=== PATIENT | male | born 1955 | race Caucasian/White ===

== ENCOUNTER 2020-02-01 17:35 | Emergency (ER) | payer BC ==
--- NOTE | 2020-02-01 18:38 | EDM.PDOC ---
ED HPI GENERAL MEDICAL PROBLEM - General Chief Complaint: General Stated Complaint: Rash, joint pain Time Seen by Provider: 02/01/20 18:30 Source of Information: Reports: Patient History Limitations: Reports: No Limitations - History of Present Illness INITIAL COMMENTS - FREE TEXT/NARRATIVE: Patient is a 64-year-old male who presents to the ER with complaints of a generalized body rash, pruritus, and joint pain to his upper extremities. Patient developed the rash on Thursday after approximately 8 to 9 days of amoxicillin treatment for a dental infection. He saw his primary care provider , Dr. Enriquez, in the clinic on that day. He was initially started on a Medrol dose pack, however had little improvement. Yesterday morning he called Dr. Enriquez and he changed him to prednisone 20 mg daily. He took 1 dose of prednisone yesterday morning and 1 dose this morning. Patient states that the rash does not seem to have improve and that last night he developed aching in that his joints of his wrists, elbows, and right shoulder. He denies any difficulty breathing. He states he did take Benadryl around 4:00 this morning did not notice any difference in the rash. He has not been taking an H2 mello. He complains of difficulty sleeping due to the pruritus. Upper Arm Pain Score (Numeric/FACES): 8 - Related Data Allergies Allergy/AdvReac Type Severity Reaction Status Date / Time amoxicillin Allergy Severe Rash Verified 02/01/20 17:55 Home Meds: Home Meds Allopurinol [Zyloprim] 100 mg PO DAILY 02/01/20 [History] Metoprolol Succinate 25 mg PO DAILY 02/01/20 [History] Rosuvastatin [Crestor] 20 mg PO DAILY 02/01/20 [History] Triamterene/Hydrochlorothiazid [Triamterene-HCTZ 37.5-25 MG] 1 cap PO DAILY [History] amLODIPine [Norvasc] 10 mg PO DAILY 02/01/20 [History] metFORMIN [Glucophage] 1,000 mg PO BIDMEALS 02/01/20 [History] predniSONE [Prednisone] 20 mg PO DAILY 02/01/20 [History] Past Medical History Cardiovascular History: Reports: High Cholesterol, Hypertension Endocrine/Metabolic History: Reports: Diabetes, Type II Social & Family History - Tobacco Use Smoking Status *Q: Never Smoker - Caffeine Use Caffeine Use: Reports: Soda - Recreational Drug Use Recreational Drug Use: No Review of Systems - Review of Systems Review Of Systems: Comprehensive ROS is negative, except as noted in HPI. ED EXAM, GENERAL - Physical Exam Exam: See Below Exam Limited By: No Limitations General Appearance: Alert, WD/WN, No Apparent Distress Throat/Mouth: Normal Inspection, Normal Lips, Normal Teeth, Normal Gums, Normal Oropharynx, Normal Voice, No Airway Compromise Head: Atraumatic, Normocephalic Neck: Normal Inspection, Supple, Non-Tender, Full Range of Motion Respiratory/Chest: No Respiratory Distress, Lungs Clear, Normal Breath Sounds, No Accessory Muscle Use, Chest Non-Tender Cardiovascular: Normal Peripheral Pulses, Regular Rate, Rhythm, No Edema, No Gallop, No JVD, No Murmur, No Rub Neurological: Alert, Oriented, CN II-XII Intact, Normal Cognition, Normal Gait, Normal Reflexes, No Motor/Sensory Deficits Psychiatric: Normal Affect, Normal Mood Skin Exam: Warm, Dry, Intact, Normal Color, Rash (Scattered hives over the abdomen, chest, back, and thighs.) Lymphatic: No Adenopathy Course - Vital Signs Last Recorded V/S: Last Vital Signs Temp 98.6 F 02/01/20 17:47 Pulse 76 02/01/20 17:47 Resp 18 02/01/20 17:47 BP 149/70 H 02/01/20 17:47 Pulse Ox 97 02/01/20 17:47 - Orders/Labs/Meds Orders: Active Orders 24 hr Category Date Time Status Peripheral IV Care [RC] . DIRECTED Care 02/01/20 18:46 Active Sodium Chloride 0.9% [Saline Flush] Med 02/01/20 18:46 Active 10 ml FLUSH ASDIRECTED PRN Peripheral IV Insertion Adult [OM.PC] Stat Oth 02/01/20 18:46 Ordered Medication Orders Sodium Chloride (Saline Flush) 10 ml FLUSH ASDIRECTED PRN PRN Reason: Keep Vein Open Last Admin: 02/01/20 19:04 Dose: 10 ml Labs: Laboratory Tests 02/01/20 02/01/20 02/01/20 Range/Units 19:00 19:00 19:00 WBC 14.56 H (4.23-9.07) K/mm3 RBC 4.98 (4.63-6.08) M/mm3 Hgb 14.4 (13.7-17.5) gm/dl Hct 42.4 (40.1-51.0) % MCV 85.1 (79.0-92.2) fl MCH 28.9 (25.7-32.2) pg MCHC 34.0 (32.2-35.5) g/dl RDW Std Deviation 45.4 H (35.1-43.9) fL Plt Count 317 (163-337) K/mm3 MPV 8.9 L (9.4-12.3) fl Neut % (Auto) 80.2 H (34.0-67.9) % Lymph % (Auto) 12.8 L (21.8-53.1) % [place] % (Auto) 6.1 (5.3-12.2) % Eos % (Auto) 0.5 L (0.8-7.0) Baso % (Auto) 0.1 (0.1-1.2) % Neut # (Auto) 11.68 H (1.78-5.38) K/mm3 Lymph # (Auto) 1.87 (1.32-3.57) K/mm3 [place] # (Auto) 0.89 H (0.30-0.82) K/mm3 Eos # (Auto) 0.07 (0.04-0.54) K/mm3 Baso # (Auto) 0.01 (0.01-0.08) K/mm3 Manual Slide Review Normal smear ESR 53 H (0-15) mm/hr Sodium 137 (136-145) mEq/L Potassium 4.0 (3.5-5.1) mEq/L Chloride 100 (98-107) mEq/L Carbon Dioxide 26 (21-32) mEq/L Anion Gap 15.0 (5-15) BUN 29 H (7-18) mg/dL Creatinine 1.4 H (0.7-1.3) mg/dL Est Cr Clr Drug Dosing 63.71 mL/min Estimated GFR (MDRD) 51 (>60) mL/min BUN/Creatinine Ratio 20.7 H (14-18) Glucose 158 H (80-115) mg/dL Calcium 9.4 (8.5-10.1) mg/dL Total Bilirubin 0.8 (0.2-1.0) mg/dL AST 25 (15-37) U/L ALT 28 (16-63) U/L Alkaline Phosphatase 85 (46-116) U/L C-Reactive Protein 11.9 H* (<1.0) mg/dL Total Protein 7.4 (6.4-8.2) g/dl Albumin 3.5 (3.4-5.0) g/dl Globulin 3.9 gm/dL Albumin/Globulin Ratio 0.9 L (1-2) Urine Color (Yellow) Urine Appearance (Clear) Urine pH (5.0-8.0) Ur Specific [place] (1.005-1.030) Urine Protein (Negative) Urine Glucose (UA) (Negative) Urine Ketones (Negative) Urine Occult Blood (Negative) Urine Nitrite (Negative) Urine Bilirubin (Negative) Urine Urobilinogen (0.2-1.0) Ur Leukocyte Esterase (Negative) Urine RBC (0-5) /hpf Urine WBC (0-5) /hpf Ur Squamous Epith Cells (0-5) /hpf Urine Bacteria (FEW) /hpf Urine Mucus (FEW) /hpf 02/01/20 Range/Units 19:47 WBC (4.23-9.07) K/mm3 RBC (4.63-6.08) M/mm3 Hgb (13.7-17.5) gm/dl Hct (40.1-51.0) % MCV (79.0-92.2) fl MCH (25.7-32.2) pg MCHC (32.2-35.5) g/dl RDW Std Deviation (35.1-43.9) fL Plt Count (163-337) K/mm3 MPV (9.4-12.3) fl Neut % (Auto) (34.0-67.9) % Lymph % (Auto) (21.8-53.1) % [place] % (Auto) (5.3-12.2) % Eos % (Auto) (0.8-7.0) Baso % (Auto) (0.1-1.2) % Neut # (Auto) (1.78-5.38) K/mm3 Lymph # (Auto) (1.32-3.57) K/mm3 [place] # (Auto) (0.30-0.82) K/mm3 Eos # (Auto) (0.04-0.54) K/mm3 Baso # (Auto) (0.01-0.08) K/mm3 Manual Slide Review ESR (0-15) mm/hr Sodium (136-145) mEq/L Potassium (3.5-5.1) mEq/L Chloride (98-107) mEq/L Carbon Dioxide (21-32) mEq/L Anion Gap (5-15) BUN (7-18) mg/dL Creatinine (0.7-1.3) mg/dL Est Cr Clr Drug Dosing mL/min Estimated GFR (MDRD) (>60) mL/min BUN/Creatinine Ratio (14-18) Glucose (80-115) mg/dL Calcium (8.5-10.1) mg/dL Total Bilirubin (0.2-1.0) mg/dL AST (15-37) U/L ALT (16-63) U/L Alkaline Phosphatase (46-116) U/L C-Reactive Protein (<1.0) mg/dL Total Protein (6.4-8.2) g/dl Albumin (3.4-5.0) g/dl Globulin gm/dL Albumin/Globulin Ratio (1-2) Urine Color Yellow (Yellow) Urine Appearance Clear (Clear) Urine pH 6.0 (5.0-8.0) Ur Specific [place] 1.025 (1.005-1.030) Urine Protein 1+ H (Negative) Urine Glucose (UA) Negative (Negative) Urine Ketones Negative (Negative) Urine Occult Blood Negative (Negative) Urine Nitrite Negative (Negative) Urine Bilirubin Negative (Negative) Urine Urobilinogen 0.2 (0.2-1.0) Ur Leukocyte Esterase Negative (Negative) Urine RBC 0-5 (0-5) /hpf Urine WBC 0-5 (0-5) /hpf Ur Squamous Epith Cells 0-5 (0-5) /hpf Urine Bacteria Few (FEW) /hpf Urine Mucus Few (FEW) /hpf Meds: Medications Generic Name Dose Route Start Last Admin Trade Name Freq PRN Reason Stop Dose Admin Sodium Chloride 10 ml 02/01/20 18:46 02/01/20 19:04 Saline Flush FLUSH 10 ml ASDIRECTED PRN Administration Keep Vein Open Discontinued Medications Generic Name Dose Route Start Last Admin Trade Name Freq PRN Reason Stop Dose Admin Diphenhydramine HCl 50 mg 02/01/20 18:41 02/01/20 19:05 Benadryl IVPUSH 02/01/20 18:42 50 mg ONETIME ONE Administration Famotidine 20 mg 02/01/20 18:40 02/01/20 19:04 Pepcid IVPUSH 02/01/20 18:41 20 mg ONETIME ONE Administration Methylprednisolone Sodium Succinate 80 mg 02/01/20 18:43 02/01/20 18:58 Solu-Medrol IVPUSH 02/01/20 18:44 125 mg ONETIME ONE Administration - Re-Assessments/Exams Free Text/Narrative Re-Assessment/Exam: 02/01/20 20:39 Hematology was significant for WBC elevated at 14.56 which is to be expected with the steroids the patient has been taking. ESR is elevated at 53 and CRP elevated 11.9 indicating that there is inflammation which is also to be expected with the patient's presentation. BUN 29, creatinine 1.4. Urinalysis showed 1+ protein but was otherwise normal. Patient did have significant improvement in his itching, joint pain and the rash has mostly resolved after the medications he received. I will discharge him home with the recommendation that he increase the prednisone 20mg to twice daily for the next 4 days. He does have a tablets of prednisone 20 mg left so this should be sufficient to finish the course. I will also have him take Pepcid 20 mg twice daily as well as Benadryl 50 mg every 6 hours. Patient educated to return to ER for any worsening symptoms or difficulty breathing. Discharge instructions as documented. Departure - Departure Time of Disposition: 20:40 Disposition: Home, Self-Care 01 Condition: Good Clinical Impression: Allergic reaction caused by a drug Qualifiers: Encounter type: initial encounter Qualified Code(s): T78.40XA - Allergy, unspecified, initial encounter - Discharge Information *PRESCRIPTION DRUG MONITORING PROGRAM REVIEWED*: No *COPY OF PRESCRIPTION DRUG MONITORING REPORT IN PATIENT KANCHAN: No Instructions: Drug Rash Referrals: Kennedy Enriquez MD [Primary Care Provider] - Forms: ED Department Discharge Additional Instructions: You were seen in the emergency department today for a generalized body rash, as well as aching to your wrist, elbow, and right shoulder. Your work-up included blood work, as well as urinalysis. Your work-up was found to be overall normal , with the exception of some elevated inflammatory markers which are to be expected with your presentation. While in the ER you received a dose of Pepcid , Benadryl, and Solu-Medrol. Your rash did improve significantly while in the ER and you stated that your itching and joint pain were also improved. I would recommend that you increase your prednisone to 20 mg twice a day for the next 4 days. I would also recommend that you take Pepcid 20 mg twice daily in addition to Benadryl 50 mg every 6 hours. Continue to take these over-the- counter medications until your symptoms have resolved. Recommend that you follow-up with Dr. Enriquez on Thursday to ensure the symptoms continue to improve. If you experience any worsening symptoms or develop any difficulty breathing, please return to the emergency department immediately Sepsis Event Note - Evaluation Sepsis Screening Result: No Definite Risk - Focused Exam Vital Signs: Vital Signs Temp Pulse Resp BP Pulse Ox 02/01/20 17:47 98.6 F 76 18 149/70 H 97 Date Exam was Performed: 02/01/20 Time Exam was Performed: 20:39 - My Orders Last 24 Hours: My Active Orders 02/01/20 18:46 Peripheral IV Care [RC] . DIRECTED Sodium Chloride 0.9% [Saline Flush] 10 ml FLUSH ASDIRECTED PRN Peripheral IV Insertion Adult [OM.PC] Stat - Assessment/Plan Last 24 Hours: My Active Orders 02/01/20 18:46 Peripheral IV Care [RC] . DIRECTED Sodium Chloride 0.9% [Saline Flush] 10 ml FLUSH ASDIRECTED PRN Peripheral IV Insertion Adult [OM.PC] Stat
[2020-02-01] MEDS ORDERED: Famotidine 20 MG/2 ML SDV IVPUSH ONE (18:40)
[2020-02-01] MEDS ORDERED: diphenhydrAMINE 50 MG/ML SDV IVPUSH ONE (18:41)
[2020-02-01] MEDS ORDERED: methylPREDNISolone Sodium Succinate 125 MG/2 ML SDV IVPUSH ONE (18:43)
[2020-02-01] MEDS ORDERED: Sodium Chloride 0.9% 10 ML Syringe FLUSH PRN (18:46)
== END 2020-02-01 20:55 | disposition home or self-care (01) ==
LOC: JD.ED 17:35
DX: L50.0 Allergic urticaria (principal); E78.00 Pure hypercholesterolemia, unspecified; I10 Essential (primary) hypertension; E11.9 Type 2 diabetes mellitus without complications; Z79.84 Long term (current) use of oral hypoglycemic drugs; Z79.899 Other long term (current) drug therapy
CPT/HCPCS: 36415; 80053; 81001; 85025; 85652; 86140; 96374; 96375; 99283; J1200; J2930; J3490